=== PATIENT | female | born 1955 | race Caucasian/White ===

== ENCOUNTER 2024-07-08 14:04 | Emergency (ER) | payer MEDICARE, OTHER ==
[~2024-07-08] VITALS: Ht 162.6 cm; Wt 87.5 kg
[2024-07-08 14:08] VITALS: TEMP 98.7
[2024-07-08] MEDS ORDERED: KETOROLAC TROMETHAMINE INJ 30 MG/ML VIAL ONE (14:24)
[2024-07-08] MEDS: KETOROLAC TROMETHAMINE INJ 30 MG/ML VIAL IM ONE (14:30)
[2024-07-08 17:12] VITALS: BP 172/76; O2SAT 97
== END 2024-07-08 16:52 | disposition home or self-care (01) ==
LOC: ER 14:06
DX: M25.551 Pain in right hip (principal); M25.562 Pain in left knee; M79.604 Pain in right leg; I10 Essential (primary) hypertension; Z88.0 Allergy status to penicillin
CPT/HCPCS: 99285; 73700; 96372; 73552; 73630; 73564 ×2; 73590; J1885